=== PATIENT | female | born 1950 | race Two or more races ===

== ENCOUNTER 2018-12-10 15:30 | Outpatient (CLI) | payer OTHER | END 2018-12-10 15:39 | disposition home or self-care (01) | LOC: RAD 15:30 | DX: M25.512 Pain in left shoulder (principal) ==

== ENCOUNTER 2019-04-05 09:43 | Outpatient (CLI) | payer OTHER | END 2019-04-05 15:52 | disposition home or self-care (01) | LOC: LAB 09:43 | DX: E55.9 Vitamin D deficiency, unspecified (principal); E21.2 Other hyperparathyroidism; E88.89 Other specified metabolic disorders; M81.8 Other osteoporosis without current pathological fracture; E56.1 Deficiency of vitamin K; M79.671 Pain in right foot ==